=== PATIENT | female | born 1970 | race Caucasian/White ===

== ENCOUNTER 2020-11-22 18:37 | Emergency (ER) | payer BC, MEDICAID, SELFPAY ==
[2020-11-22 18:51] VITALS: BP 132/110; PULSE 72; RESP 20; TEMP 37.3; O2SAT 100; BMI 25.9
[2020-11-22 18:55] VITALS: BP 118/74; PULSE 125; RESP 18; TEMP 37.8; O2SAT 99; BMI 26.1
--- NOTE | 2020-11-22 18:56 | HMH.EDUTC ---
[facility] [place] Disposition Clinical Impression: Left upper quadrant abdominal pain Disposition: Still a Patient Condition on Discharge: Undetermined Additional Instructions: Sent to ER for further workup Referrals: Bessy Hua [Primary Care Provider] - Medical Decision Making - Edi Inquiry Pt receiving controlled substance: No Vital Signs: 11/22/20 18:51 11/22/20 18:55 Temperature 99.2 F 100.1 F H Temperature Source Oral Oral Pulse Rate [Left Radial] 72 125 H Respiratory Rate 20 18 Blood Pressure [Right Arm] 132/110 H 118/74 Blood Pressure Mean [Right Arm] 117 88 Blood Pressure Source [Right Arm] Automatic Cuff Automatic Cuff Blood Pressure Position [Right Arm] Sitting Sitting 02 Sat by Pulse Oximetry 100 99 Oxygen Delivery Method Room Air Room Air - Lab Data Lab results reviewed: Yes: I reviewed the patient's lab results. Lab Results 11/22/20 19:20: WBC 16.8 H, RBC 4.69, Hgb 13.8, Hct 41.0, MCV 87.4, MCH 29.4, MCHC 33.6, RDW 14.1, Plt Count 304, MPV 7.9, Neut % (Auto) 79.9, Lymph % (Auto) 13.1, [place] % (Auto) 5.1, Eos % (Auto) 1.4, Baso % (Auto) 0.4, Neut # (Auto) 13.4 H, Lymph # (Auto) 2.2, [place] # (Auto) 0.9, Eos # (Auto) 0.2, Baso # (Auto) 0.1 11/22/20 19:20: Sodium 136, Potassium 3.7, Chloride 98, Carbon Dioxide 29, Anion Gap 12.7, BUN 12, Creatinine 0.70, Estimated Creat Clear 100, Estimated GFR 89, Est GFR ( Amer) 108, Glucose 112 H, Calcium 10.0, Total Bilirubin 0.6, AST 29, ALT 21, Alkaline Phosphatase 69, Total Protein 8.4 H, Albumin 5.0, Globulin 3.4 H, Albumin/Globulin Ratio 1.5 Result diagrams: 11/22/20 19:20 11/22/20 19:20 Orders (Tests/Meds): ORDERS Category Date Time Status Complete Blood Count Auto Diff Stat Lab 11/22/20 19:20 Results [facility] [place] HPI - General Stated complaint: left side pain,bloating Time Seen by Provider: 11/22/20 19:12 Mode of Arrival: Ambulatory Source of Information: Patient Limitations: No Limitations Description of Symptoms (Recalled from Triage Doc. by RN): pt c/o pain with movement and turning on her left side under her arm/rib area. Denies any injury. States she was concerned about her appendix due to a low grade fever at home and left side pain. Educated about anatomy and took temp and pt was less concerned about appendix. Denies any n/v - History of Present Illness Provider Complaint: Patient complains of pain in her left side. Started this morning. Has also had fever. Fever around 101. Pain under left side. No rash. Denies ear pain, sore throat, sinus pain or pressure, vomiting or diarrhea. No dysuria. Normal BM this afternoon. Pain is worse with movement, turning into left side. Onset (ago): hour(s) (12) Location: abdomen Radiation: non-radiation Relieving factors: none Exacerbating factors: none Associated symptoms: denies other symptoms Treatments prior to arrival: none - Related Data Home Medications Medication Instructions Recorded Confirmed Simvastatin 20 mg PO DAILY 11/25/19 11/25/19 Previous Rx's Medication Instructions Recorded Azithromycin [Zithromax 250mg 250 mg PO DIRECTED #6 tab 11/25/19 tab] Allergies Allergy/AdvReac Type Severity Reaction Status Date / Time No Known Allergies Allergy Verified 11/04/19 12:24 [facility] History - Hepatitis A Screen Attestation statement:: This patient has been screened for Hepatitis A risk factors. I have reviewed the patient's past medical history: Yes Medical History: Reports:: Hyperlipidemia Other Surgeries: Yes: Tubal Ligation Amputation: No Fractures: No - Social History Smoking Status: Current every day smoker Tobacco Type: cigarettes # Packs/Day (cigarettes): 1 #Yrs smoked (if former smoker): 25 Alcohol Intake: never Alcohol Intake Frequency:: holidays/special occasions only Substance Use Type: denies use Occupational Status: employed Housing: house Household Members: spouse Family Hx:: Non-contributory ROS Obtained: Yes All systems r
[2020-11-22 19:34] LABS: Basophils # 0.1 K/mm3 (0-0.2); Basophils % 0.4 % (0.1-2.0); Eosinophils # 0.2 K/mm3 (0.0-0.4); Eosinophils % 1.4 % (0.1-12.0); Hemoglobin 13.8 g/dL (12.2-16.2); Lymphocytes # 2.2 K/mm3 (0.7-4.5); Lymphocytes % 13.1 % (10-50); Mean Corpuscular HGB Conc 33.6 g/dL (31.8-35.4); Mean Corpuscular Hemoglobin 29.4 pg (27.0-31.2); Mean Corpuscular Volume 87.4 fl (81-99); Mean Platelet Volume 7.9 fl (7.4-10.4); Monocytes # 0.9 K/mm3 (0.1-1.0); Monocytes % 5.1 % (1.7-9.3); Neutrophils # 13.4 K/mm3 (1.8-7.8); Neutrophils % 79.9 % (37.0-80.0); Platelet Count 304 K/mm3 (142-424); Red Blood Count 4.69 M/mm3 (4.20-5.40); Red Cell Distribution Width 14.1 % (11.5-17.5); White Blood Count 16.8 K/mm3 (4.8-10.8)
[2020-11-22 19:36] LABS: MANUAL DIFFERENTIAL MANUAL DIFFERENTIAL (MANUAL DIFF)
[2020-11-22 19:43] LABS: Alanine Aminotransferase 21 U/L (12-78); Albumin/Globulin Ratio 1.5 (1.1-1.8); Alkaline Phosphatase 69 U/L (38-126); Anion Gap 12.7 mEq/L (5-15); Aspartate Amino Transferase 29 U/L (14-36); Bilirubin,Total 0.6 mg/dl (0.2-1.3); Blood Urea Nitrogen 12 mg/dl (7-17); Carbon Dioxide 29 mmol/L (22.0-30.0); Chloride 98 mmol/L (98-107); Creatinine Clearance Estimated 100 mL/min (50-200); Estimated Glomerular Filt Rate 89 ml/min (>60); GFR (African American) 108 ML/MIN (>60); Globulin 3.4 g/dL (1.3-3.2); Glucose 112 mg/dl (74-100); Potassium 3.7 mmoL/L (3.5-5.1); Sodium 136 mmol/L (136-145); Total Protein,Serum 8.4 g/dl (6.3-8.2)
--- NOTE | 2020-11-22 19:45 | PC.NURSE ---
PATIENT SENT TO ER PER [facility] FOR FURTHER EVALUATION
[2020-11-22 19:47] VITALS: BP 133/89; PULSE 101; RESP 16; TEMP 37.6; O2SAT 98; BMI 25.9
[2020-11-22 19:54] LABS: Eosinophils % 1 % (0-3); Lymphocytes % 13 % (10-50); Monocytes % 5 % (2-9); Neutrophils % 81 % (42-76); Total Cells Counted 100
[2020-11-22 19:55] LABS: Platelet Estimate Normal; RBC Morphology Normal
[2020-11-22 19:56] LABS: Apearance,Urine Clear (Clear); Color,Urine Yellow (Yellow); Specific Gravity, Urine 1.015 (1.005-1.030)
[2020-11-22 19:57] LABS: Bilirubin,Urine Negative (Negative); Blood, Urine Trace (Negative); Glucose,Urine (UA) Negative (Negative); Ketones,Urine Negative (Negative); Protein,Urine Negative (Negative); UTC Leukocyte Esterase,Urine Negative (Negative); UTC Nitrate,Urine Negative (Negative); UTC Strep Screen (Rapid) Negative (Negative); Urobilinogen,Urine 0.2 EU/dl (0.2)
[2020-11-22 20:06] LABS: Amylase 48 U/L (30-110); Lipase 41 U/L (23-300)
--- NOTE | 2020-11-22 20:13 | CT_ITS ---
PROCEDURE: CT ABDOMEN PELVIS W CON CLINICAL INDICATION: LUQ pain w/fever and leukocytosis COMPARISON: No exams were available for comparison TECHNIQUE: IV Contrast: 75ML Isovue 370 Oral Contrast None Axial images obtained with sagittal and coronal reformats. All CT scans at the facility use one or more dose reduction, viz: automated exposure control, ma/kV adjustment per patient size (including targeted exams where dose is matched to indication, i.e. head), or iterative reconstruction technique. FINDINGS: LOWER THORAX: No acute finding ABDOMEN & PELVIS: The liver and spleen have an appearance as does the adrenal glands, pancreas, and kidneys. There is thickening of the descending colon with stranding of the pericolic with an inflamed diverticulum noted consistent with acute diverticulitis. No abscess or perforation. There is colonic diverticulosis noted. Small amount fluid is present in the cul-de-sac. There is 4 cm left ovarian cyst. Unremarkable appendix. No intestinal obstruction. There is some mild diffuse thickening of the jejunum. No acute bony findings. Small fat containing umbilical hernia IMPRESSION: 1. Acute diverticulitis of the descending colon. No evidence perforation or abscess. There is colonic diverticulosis 2. Mild diffuse thickening of the jejunum possibly due to nondistention versus enteritis. 3. 4 cm left ovarian cyst Dictated by: Wing Garner MD 11/22/2020 23:15 Wing Garner MD in [place] 11/22/2020 23:15
--- NOTE | 2020-11-22 20:13 | HMH.EDGENADL ---
ED Disposition Clinical Impression: Left upper quadrant abdominal pain, Diverticulitis Disposition: Home, Self-Care Condition on Discharge: Good Instructions: DI for Acute Abdominal Pain Additional Instructions: On CT scan, it looks like you have acute, uncomplicated diverticulitis in your mid descending colon without any phlegmon/abscess formation. Please take p.o. antibiotics as prescribed and over the next several days follow a low fiber diet with mostly just clear liquids to allow your bowels to rest. After that time, I recommend starting a bowel regimen to have a more normal bowel movement schedule with soft stools. Please follow-up with your primary care doctor within the next several days as it is recommended to have a colonoscopy within 6 to 8 weeks to ensure no malignancy. If any worsening symptoms such as intractable nausea/vomiting, concern for dehydration, high fever/chills, recurrent or worsening pain, or other new concerning symptoms please return to our emergency department immediately. Prescriptions: Ciprofloxacin HCl [Ciprofloxacin 500mg Tab] 500 mg PO BID 14 Days #28 tab Transmission Status: Pending to [facility]/pharmacy #[id number] metroNIDAZOLE [metroNIDAZOLE 500mg Tablet] 500 mg PO TID 14 Days #42 tab Transmission Status: Pending to [facility]/pharmacy #[id number] Referrals: Bessy Hua [Primary Care Provider] - - Critical Care Critical Care Time: No Attestation: On 11/22/20, the high probability of a clinically significant, sudden or life threatening deterioration of the following system(s) required my full and direct attention, intervention and personal management. The time I documented below is in addition to time spent performing reported procedures but includes the following listed in this critical care notation. Medical Decision Making - Medical Records Medical records reviewed: Yes: I reviewed the patient's medical records. - Edi Inquiry Pt receiving controlled substance: No Vital Signs: 11/22/20 18:51 11/22/20 18:55 11/22/20 19:47 Temperature 99.2 F 100.1 F H 99.7 F H Temperature Source Oral Oral Oral Pulse Rate [Left Radial] 72 125 H 101 H Respiratory Rate 20 18 16 Blood Pressure [Right Arm] 132/110 H 118/74 133/89 Blood Pressure Mean [Right Arm] 117 88 103 Blood Pressure Source [Right Arm] Automatic Cuff Automatic Cuff Automatic Cuff Blood Pressure Position [Right Arm] Sitting Sitting Sitting 02 Sat by Pulse Oximetry 100 99 98 Oxygen Delivery Method Room Air Room Air Room Air - Lab Data Lab Results 11/22/20 19:11: Strep Scn Rapid Clinic Negative 11/22/20 19:11: Urine Color Yellow, Urine Appearance Clear, Urine pH 7.0, Ur Specific [place] 1.015, Urine Protein Negative, Urine Glucose (UA) Negative, Urine Ketones Negative, Urine Blood Trace, Urine Nitrate Negative, Urine Bilirubin Negative, Urine Urobilinogen 0.2, Ur Leukocyte Esterase Negative 11/22/20 19:15: Urine HCG, Qual Negative 11/22/20 19:20: WBC 16.8 H, RBC 4.69, Hgb 13.8, Hct 41.0, MCV 87.4, MCH 29.4, MCHC 33.6, RDW 14.1, Plt Count 304, MPV 7.9, Neut % (Auto) 79.9, Lymph % (Auto) 13.1, [place] % (Auto) 5.1, Eos % (Auto) 1.4, Baso % (Auto) 0.4, Neut # (Auto) 13.4 H, Lymph # (Auto) 2.2, [place] # (Auto) 0.9, Eos # (Auto) 0.2, Baso # (Auto) 0.1, Total Counted 100, Neutrophils % (Manual) 81 H, Lymphocytes % (Manual) 13, Monocytes % (Manual) 5, Eosinophils % (Manual) 1, Platelet Estimate Normal, RBC Morphology Normal 11/22/20 19:20: Sodium 136, Potassium 3.7, Chloride 98, Carbon Dioxide 29, Anion Gap 12.7, BUN 12, Creatinine 0.70, Estimated Creat Clear 100, Estimated GFR 89, Est GFR ( Amer) 108, Glucose 112 H, Calcium 10.0, Total Bilirubin 0.6, AST 29, ALT 21, Alkaline Phosphatase 69, Total Protein 8.4 H, Albumin 5.0, Globulin 3.4 H, Albumin/Globulin Ratio 1.5 11/22/20 19:40: Amylase 48, Lipase 41 11/22/20 19:55: Lactate 0.7 Result diagrams: 11/22/20 19:20 11/22/20 19:20 Orders (Tests/Meds): ED MEDICATIONS Discontinued Medicatio
[2020-11-22 20:18] LABS: Lactic Acid 0.7 mmol/L (0.7-2.1)
[2020-11-22 20:41] LABS: Urine Pregnancy, HCG Qual. Negative (Negative)
--- NOTE | 2020-11-22 20:55 | PC.NURSE ---
given CT report
[2020-11-22 21:13] VITALS: BP 128/75; PULSE 97; RESP 18; TEMP 37.3; O2SAT 98
== END 2020-11-22 21:19 | disposition home or self-care (01) ==
LOC: ER 18:52 → UTC 18:52 → ER 19:51
PROVIDERS: Physician Assistant; Emergency Provider Emergency Medicine; PCP Family Medicine
DX: K57.92 Diverticulitis of intestine, part unspecified, without perforation or abscess without bleeding (principal); E78.5 Hyperlipidemia, unspecified; F17.210 Nicotine dependence, cigarettes, uncomplicated
CPT/HCPCS: 74177; 80053; 81003; 81025; 82150; 83605; 83690; 85007; 85025; 87040; 87086; 87880; 99284; Q9967

== ENCOUNTER → 2023-01-25 19:14 | Outpatient (CLI) | payer BC, SELFPAY ==
[2023-01-25 19:21] LABS: Adenovirus,PCR Not Detected (NotDetected); Bordetella Pertussis Not Detected (NotDetected); Chlamydophila Pneumoniae, PCR Not Detected (NotDetected); Coronavirus 19, PCR Not Detected (NotDetected); Coronavirus 229E Not Detected (NotDetected); Coronavirus NL63 Not Detected (NotDetected); Coronavirus OC43 Not Detected (NotDetected); Coronovirus HKU1,PCR Not Detected (NotDetected); Human Metapneumovirus Not Detected (NotDetected); Influenza A, PCR Not Detected (NotDetected); Influenza AH1, 2009 Not Detected (NotDetected); Influenza AH1, PCR Not Detected (NotDetected); Influenza AH3,PCR Not Detected (NotDetected); Influenza B, PCR Not Detected (NotDetected); Mycoplasma Pneumoniae, PCR Not Detected (NotDetected); Parainfluenza 1, PCR Not Detected (NotDetected); Parainfluenza 2, PCR Not Detected (NotDetected); Parainfluenza 3, PCR Not Detected (NotDetected); Parainfluenza 4, PCR Not Detected (NotDetected); Respiratory Syncytial Virus Not Detected (NotDetected)
[2023-01-26 10:57] LABS: Rhinovirus/Enterovirus Detected (NotDetected)
== END ==
PROVIDERS: PCP Nurse Practitioner; Visit Provider Nurse Practitioner
DX: J98.8 Other specified respiratory disorders (principal); B34.1 Enterovirus infection, unspecified
CPT/HCPCS: 87581; 87632; 87798; C9803; U0003; U0005